=== PATIENT | female | born 1955 | race African-American/Black ===

== ENCOUNTER 2017-09-15 05:48 | Day surgery (SDC) | payer OTHER ==
--- NOTE | 2017-07-28 08:50 | HP ---
DATE OF ADMISSION: 08/18/2017 DATE OF DICTATION: 06/29/2017 Patient to be admitted through the [facility] in the near future; date to be determined. HISTORY: A 61-year-old woman admitted through the [facility] for excision of recurrent soft tissue neoplasia of the left upper abdominal wall. According to the patient, she had what she describes as a lipoma removed at that level by piecemeal remotely. Since that time, it has recurred and has become progressively larger in size. She presents for excision of the lesion once again. Additionally, the patient had experienced some discomfort at the base of the spine just off to the right of the lower spine. She was recently seen in an urgent care center for such but found to have paucity findings and offered no management. She was curious what my thoughts were about this process. She does state that the area in question has since almost entirely resolved. PAST MEDICAL HISTORY: Significant for cataract surgery. No history of hypertension, heart disease, diabetes, respiratory, renal, or hepatic insufficiency. PAST SURGICAL HISTORY: Significant for section, rotator cuff repair, uvulectomy for sleep apnea. ALLERGIES: ERYTHROMYCIN. REGULAR MEDICATIONS: None. SOCIAL HISTORY: Negative tobacco. Positive alcohol, 2-3 drinks weekly. FAMILY HISTORY: Father age 88, history of heart disease, hypertension, and diabetes. REVIEW OF SYSTEMS: Otherwise nil. PHYSICAL EXAMINATION: The patient has a soft tissue neoplasia involving the left upper abdominal wall, measuring approximately 3 x 3 cm in size. It is somewhat irregular. There is an overlying scar consistent with prior intervention. There are no satellite lesions or regional lymphadenopathy. With the patient in the prone position, at the base of the spine, just off to the right of the coccyx is the region of the patient's concern. On examination, there are no significant findings encountered today. Patient states that she still has very mild discomfort on deep palpation. IMPRESSION: 1. Recurrent lipomatous neoplasia, left upper abdominal wall. 2. Pain and swelling just off to the right of the coccyx recently which has pretty much resolved. Unclear etiology. Cannot rule out underlying pilonidal cyst although not evident clinically. PLAN: 1. Excision, recurrent lipomatous neoplasia of left upper abdominal wall. 2. Considering the patient is improving at the level of the lower spine region, we will continue to follow clinically. Indications, alternatives, possible complications associated with the excision of the recurrent lipomatous mass reviewed. Consent obtained. Surya COATES/[id number]
[2017-08-10 15:34] VITALS: BMI 23.6
[2017-09-15] MEDS ORDERED: MIDAZOLAM HCL 2 MG/2 ML SINGLE DOSE VIAL ONE (07:24)
[2017-09-15] MEDS ORDERED: PROPOFOL 20 ML ONE ×2 (07:24)
[2017-09-15] MEDS ORDERED: SUCCINYLCHOLINE CHLORIDE 200 MG/10 ML VIAL ONE (07:25)
[2017-09-15] MEDS ORDERED: ceFAZolin SODIUM 1 GM VIAL ONE (07:27)
[2017-09-15] MEDS ORDERED: KETOROLAC TROMETHAMINE 30 MG/1 ML VIAL ONE (07:27)
[2017-09-15] MEDS ORDERED: ONDANSETRON 4 MG/2 ML VIAL ONE (07:27)
[2017-09-15] MEDS ORDERED: DEXAMETHASONE SOD PHOSPHATE 4 MG/1 ML VIAL ONE (07:27)
[2017-09-15] MEDS ORDERED: LIDOCAINE HCL 1%, 10 MG/ML (20ML VIAL) ONE (07:44)
[2017-09-15] MEDS ORDERED: LIDOCAINE 1%/EPI 1:100000 (20 ML MULTI DOSE VIAL) ONE (08:29)
[2017-09-15 09:06] VITALS: TEMP 97.6
[2017-09-15 10:29] VITALS: BP 110/66; PULSE 72
--- NOTE | 2017-09-15 10:31 | HP ---
DATE OF ADMISSION: DATE OF DICTATION: 09/15/2017 HISTORY: This is a dictation (see initial dictation admitting history and physical dated June 29, 2017). This is a 62-year-old woman who presents for excision of her recurrent soft tissue neoplasia of the left upper abdominal wall. There is no change since her previous examination dated June 29, 2017. PAST MEDICAL HISTORY: Essentially nil. No history of hypertension, heart disease, diabetes, respiratory, renal, or hepatic insufficiency. PAST SURGICAL HISTORY: Significant for cataract surgery as well as section and rotator cuff surgery. Patient also had a for sleep apnea. ALLERGIES: ERYTHROMYCIN. REGULAR MEDICATIONS: None. SOCIAL HISTORY: Negative for tobacco. Positive for alcohol, 2-3 drnks weekly. FAMILY HISTORY: Positive history of heart disease, hypertension, diabetes. REVIEW OF SYSTEMS: Nil. PHYSICAL EXAMINATION: Abdomen: At the level of the left upper abdominal wall is a 3 x 3 cm soft tissue mass, which is somewhat irregular, appears an underlying scar consistent with a prior excision. There are no satellite lesions or regional lymphadenopathy. IMPRESSION: Recurrent soft tissue neoplasia, left upper abdominal wall. PLAN: Excision of recurrent soft tissue neoplasia, left upper abdominal wall under local anesthesia with sedation. Indications, alternatives, possible complications were reviewed. Consent obtained. LETICIA ARSHAD M.D. [facility]/[id number]
--- NOTE | 2017-09-15 14:32 | OP ---
DATE OF OPERATION: 09/15/2017 PREOPERATIVE DIAGNOSIS: Recurrent soft tissue neoplasia, left upper abdominal wall. POSTOPERATIVE DIAGNOSIS: Recurrent lipomatous subfascial neoplasia, left upper abdominal wall. PROCEDURE: Excision recurrent lipomatous subfascial neoplasia, left upper abdominal wall/ intermediate wound closure (5 cm). OPERATING SURGEON: Robby Ruiz MD ANESTHESIA: Swati Foster MD - Local/sedation. HISTORY: This is a 62-year-old woman admitted to the hospital for excision requiring soft tissue neoplasia of the left upper abdominal wall. Indications, alternatives, possible complications were reviewed. Consent obtained. DESCRIPTION OF PROCEDURE: With the patient in the supine position, and after IV sedation as per Anesthesia, the area in question was prepped with chlorhexidine. Lidocaine was used to infiltrate the soft tissues at the intended level of excision as a field block. A 5-cm transverse incision was made directly over the mass and deepened into the subcutaneous space. In the subcutaneous space, an ill-defined lipomatous neoplasia was encountered, which stimmed from the undersurface of the skin to the level of the fascia below, where it was noted emanating through several of the fibers of the fascia of the muscle. Now, using sharp dissection, the lesion was excised in its entirety. The recurrent soft tissue mass had lipomatous projections, which were interspersed with the [place] subcutaneous tissue. These were meticulously incised. The intramuscular portion of the lipomatous neoplasia was also shelled out from the underlying muscle fibers without disrupting the fibers themselves. It was ultimately delivered. After hemostasis, the wound was closed in layers. The fascia was closed using interrupted 3-0 chromic suture. The subcutaneous layers were all closed using interrupted 3-0 chromic suture. The skin edges were approximated using 5-0 nylon sutures in a continuous fashion. NEEDLE AND INSTRUMENT COUNTS: Correct. ESTIMATED BLOOD LOSS: Minimal. SPECIMENS: Recurrent soft tissue neoplasia, left upper abdominal wall. DRAINS: None. Patient tolerated the procedure. Procedure was terminated. ROBBY RUIZ M.D. [facility]/[id number] MTDD
--- NOTE | 2017-09-17 11:45 | PATH ---
Surgical Pathology Report Patient Name: GIANFRANCO BAUTISTA [facility]. Rec. #: [id number] /Age/Gender: 1955 (Age: 62) / F Account: [id number] Location: [facility] AMBUL[facility]ORY Taken: 09/15/2017 Received: 09/15/2017 Reported: 09/17/2017 Physicians: Robby Ruiz M.D. Specimen(s) Received RECURRENT SUBFACIAL SOFT TISSUE Clinical History Recurrent neoplasm left abdominal wall Final Diagnosis SOFT TISSUE, LEFT ABDOMINAL WALL, EXCISION: LIPOMA. NO ATYPICAL OR MALIGNANT FEATURES ARE IDENTIFIED. Electronically Signed Federico Joshi M.D. Gross Description Received in formalin labeled "recurrent subfascial soft tissue neoplasm of left abdominal wall," is a 5.5 x 3.9 x 3.0 cm portion of yellow, lobulated adipose tissue. Sectioning reveals homogeneous yellow, smooth fat with foci of fibrous tissue. [employer] Specialist sections are submitted in 3 cassettes. /09/16/2017 saudi/09/16/2017
== END 2017-09-15 10:32 | disposition home or self-care (01) ==
LOC: FASU 05:48
PROVIDERS: ATTEND Surgery
PROC: 0JB60ZX Excision of Chest Subcutaneous Tissue and Fascia, Open Approach, Diagnostic (ICD-10-PCS; principal; 2017-09-15 08:11)
DX: D17.1 Benign lipomatous neoplasm of skin and subcutaneous tissue of trunk (principal)
CPT/HCPCS: 88304-TC